=== PATIENT | female | born 1945 | race Caucasian/White ===

== ENCOUNTER 2017-12-19 05:28 | Inpatient (IN) | payer MEDICARE, BC ==
[2017-12-19] MEDS ORDERED: BACITRACIN 50000 UNITS INJ (06:40)
[2017-12-19] MEDS: TRANEXAMIC ACID 1,000 MG in D5W 100 ML AT CLOSURE X1 IVPB (07:30)
[2017-12-19] MEDS ORDERED: BISACODYL 10 MG SUPP PR (07:30)
[2017-12-19] MEDS: LACTATED RINGER'S 1,000 ML IV ×3 (07:30→22:44)
[2017-12-19] MEDS ORDERED: VANCOMYCIN 500MG/NS (PMX) 100 ML IVPB (07:30)
[2017-12-19] MEDS ORDERED: BETHANECHOL 25 MG TAB PO (07:30)
[2017-12-19] MEDS: CEFAZOLIN 2 GM/50 ML (PMX) 50 ML IVPB (07:30)
[2017-12-19] MEDS ORDERED: NACL 0.9% 3 ML SYG IV (07:30)
[2017-12-19] MEDS ORDERED: CEFAZOLIN 1 GM INJ (07:33)
[2017-12-19] MEDS ORDERED: ROCURONIUM 50 MG INJ (07:33)
[2017-12-19] MEDS ORDERED: NEOSTIGMINE 3 MG/3 ML SYRINGE (07:33)
[2017-12-19] MEDS ORDERED: PROPOFOL 0 ML (07:33)
[2017-12-19] MEDS ORDERED: GLYCOPYRROLATE 0.4 MG INJ (07:33)
[2017-12-19] MEDS ORDERED: MIDAZOLAM 1 MG/ML 2 ML INJ (07:34)
[2017-12-19] MEDS ORDERED: ONDANSETRON 4 MG INJ (07:35)
[2017-12-19] MEDS ORDERED: ETOMIDATE 20 MG INJ (07:35)
[2017-12-19] MEDS ORDERED: DEXAMETHASONE 4 MG/ML 1 ML INJ (07:35)
[2017-12-19] MEDS ORDERED: HYDROmorphONE 2 MG/ML SYG (07:37)
[2017-12-19] MEDS ORDERED: ROPIVACAINE 0.5 % 30 ML VIAL (07:39)
[2017-12-19] MEDS: TRANEXAMIC ACID 1,000 MG in D5W 100 ML AT INCISION X1 IVPB ×2 (08:27→09:20)
[2017-12-19] MEDS: POLYMYXIN/BACITRACIN 1L IRRIG IRR (08:32)
[2017-12-19] MEDS ORDERED: PHENYLephrine (100 MCG/ML) 5ML SYG (08:34)
[2017-12-19] MEDS: GABAPENTIN 100 MG CAP PO ×3 (09:00→21:00)
[2017-12-19] MEDS ORDERED: MEPERIDINE 25 MG INJ IV (09:00)
[2017-12-19] MEDS ORDERED: TRIMETHOBENZAMIDE 100 MG/ML VIAL IM (09:00)
[2017-12-19] MEDS ORDERED: IPRATROPIUM (NEB) 0.5 MG/2.5 ML AMP HHN (09:00)
[2017-12-19] MEDS ORDERED: LABETALOL HCL 20MG INJ IV (09:00)
[2017-12-19] MEDS: SENNA/DOCUSATE NA (8.6MG/50MG) TAB PO ×2 (09:00→20:51)
[2017-12-19] MEDS ORDERED: EPHEDrine SULFATE 50 MG/5 ML SYG IV (09:00)
[2017-12-19] MEDS ORDERED: hydrALAzine 20 MG INJ IV (09:00)
[2017-12-19] MEDS ORDERED: HYDROmorphONE 1 MG/5 ML IV SYRINGE IV ×3 (09:00)
[2017-12-19] MEDS ORDERED: ALBUTEROL 0.083% (NEB) 2.5 MG/3 ML AMP HHN (09:00)
[2017-12-19] MEDS ORDERED: SUGAMMADEX SODIUM 200 MG/2 ML VIAL IV (09:44)
[2017-12-19] MEDS: MIDAZOLAM 1 MG/ML 2 ML INJ IV (10:46)
[2017-12-19] MEDS: ONDANSETRON 4 MG INJ IV ×3 (11:20→18:54)
[2017-12-19] MEDS ORDERED: FAMOTIDINE 20 MG TAB PO (12:30)
[2017-12-19] MEDS ORDERED: MAGNESIUM HYDROXIDE 30ML CUP PO (12:30)
[2017-12-19] MEDS ORDERED: SIMETHICONE 180 MG PO (12:30)
[2017-12-19] MEDS: VANCOMYCIN 500MG/NS (PMX) 100 ML IVPB (12:46)
[2017-12-19] MEDS ORDERED: ONDANSETRON 4 MG INJ IV (13:30)
[2017-12-19] MEDS: DOCUSATE SODIUM 250 MG CAP PO (20:50)
[2017-12-19] MEDS: KETOROLAC 30 MG INJ IV (20:51)
[2017-12-19] MEDS ORDERED: PATIENT'S OWN MEDICATION PO (21:00)
[2017-12-19] MEDS ORDERED: PANTOPRAZOLE (EC) 40 MG TAB PO (21:00)
[2017-12-19] MEDS: NEXIUM 40MG CAPSULE PO (22:30)
[2017-12-19] MEDS: NEXIUM 20 MG PO (22:32)
[2017-12-20] MEDS: KETOROLAC 30 MG INJ IV ×3 (00:02→12:57)
[2017-12-20] MEDS: LORAZEPAM 1 MG TAB PO (00:02)
[2017-12-20] MEDS: VANCOMYCIN 500MG/NS (PMX) 100 ML IVPB (00:02)
[2017-12-20] MEDS: LEVOXYL 100 MCG PO (07:00)
[2017-12-20] MEDS ORDERED: LEVOTHYROXINE 100 MCG TAB PO (07:00)
[2017-12-20] MEDS: GABAPENTIN 100 MG CAP PO (08:25)
[2017-12-20] MEDS: SENNA/DOCUSATE NA (8.6MG/50MG) TAB PO (08:25)
[2017-12-20 08:56] LABS: ADD MAN DIFF? NO
[2017-12-20] MEDS: DOCUSATE SODIUM 250 MG CAP PO (08:58)
[2017-12-20] MEDS: CALCIUM/VITAMIN D (250/125) TAB PO ×2 (08:58→13:00)
[2017-12-20] MEDS: MAGNESIUM HYDROXIDE 30ML CUP PO (08:58)
[2017-12-20 09:00] LABS: BASOPHIL # 0.1 10^3/ul (0.0-0.1); BASOPHILS % 0.6 % (0.0-2.0); EOSINOPHILS # 0.1 10^3/ul (0.0-0.5); EOSINOPHILS % 1.1 % (0.0-7.0); HEMATOCRIT 34.4 % (37.0-47.0); HEMOGLOBIN 10.8 g/dl (12.0-16.0); LYMPHOCYTES # 1.6 10^3/ul (0.8-2.9); LYMPHOCYTES % 15.9 % (15.0-51.0); MEAN CORPUSCULAR HEMOGLOBIN 29.2 pg (29.0-33.0); MEAN CORPUSCULAR HGB CONC 31.4 g/dl (32.0-37.0); MEAN PLATELET VOLUME 9.4 fl (7.4-10.4); MONOCYTE # 0.4 10^3/ul (0.3-0.9); MONOCYTES % 3.5 % (0.0-11.0); NEUTROPHIL # 7.9 10^3/ul (1.6-7.5); NEUTROPHILS % 78.5 % (39.0-77.0); PLATELET COUNT 223 10^3/UL (140-415); RED CELL DISTRIBUTION WIDTH 13.2 % (11.5-14.5)
[2017-12-20] MEDS ORDERED: HYDROCODONE/APAP (5/325) TAB PO (09:00)
[2017-12-20 09:21] LABS: ANION GAP 12 (8-16); BLOOD UREA NITROGEN 11 mg/dl (7-20); CALCIUM 8.9 mg/dl (8.4-10.2); CARBON DIOXIDE 25 mmol/L (21-31); CHLORIDE 104 mmol/L (97-110); CREATININE 0.63 mg/dl (0.44-1.00); GLUCOSE 117 mg/dl (70-220); SODIUM 137 mmol/L (135-144)
[2017-12-20 09:37] LABS: FREE T4 (FREE THYROXINE) 1.17 ng/dl (0.78-2.44)
[2017-12-20 09:50] LABS: THYROID STIMULATING HORMONE 0.389 MIU/L (0.465-4.680)
[2017-12-21] MEDS ORDERED: LEVOTHYROXINE 75 MCG TAB PO (06:00)
== END 2017-12-20 14:03 | disposition home health service (06) | DRG 483 ==
LOC: REC 05:28 → MS1 11:10
PROC: 0RRJ00Z Replacement of Right Shoulder Joint with Reverse Ball and Socket Synthetic Substitute, Open Approach (ICD-10-PCS; principal; 2017-12-19 07:30)
PROC: 0LS30ZZ Reposition Right Upper Arm Tendon, Open Approach (ICD-10-PCS; 2017-12-19 07:30)
DX: M12.811 Other specific arthropathies, not elsewhere classified, right shoulder (principal); M75.101 Unspecified rotator cuff tear or rupture of right shoulder, not specified as traumatic; F41.9 Anxiety disorder, unspecified; E03.9 Hypothyroidism, unspecified; K59.00 Constipation, unspecified; K21.9 Gastro-esophageal reflux disease without esophagitis
CPT/HCPCS: 80048; 83735; 84439; 84443; 85025; 86850; 86900; 86901; 87081; 88304; 88311; 97110; 97116; 97162; 97165; 97535